=== PATIENT | male | born 1935 | race Caucasian/White ===

== ENCOUNTER 2017-07-29 11:36 | Observation (INO) ==
[2017-07-29 12:37] LABS: Bilirubin,Urine Negative (Negative); Blood,Urine Moderate (Negative); Clarity,Urine Turbid (Clear); Color,Urine Yellow (Yellow); Glucose,Urine (UA) Normal (Normal); Ketones,Urine Negative (Negative); Leukocyte Esterase,Urine Large (Negative); Nitrite,Urine Negative (Negative); PH,Urine 6.5 pH Units (5.0-8.0); Protein,Urine 100 mg/dL (Neg-Trace); Specific Gravity,Urine 1.018 (1.010-1.025); Urobilinogen,Urine Normal (Normal)
[2017-07-29 12:40] LABS: Bacteria,Urine None Seen per hpf (None-Few); Hyaline Casts,Urine None Seen per lpf (None-Few); RBC,Urine 30-50 per hpf (0-3); Squamous Epithelial Cell,Urine Moderate per lpf (None-Few); WBC,Urine TNTC per hpf (0-3)
[2017-07-29 12:58] LABS: Yeast,Urine Moderate per hpf (None Seen)
--- NOTE | 2017-07-29 13:18 | Emergency Department Note ---
Disposition Clinical Impression: Hydroureter, Hydronephrosis, Dysuria, Hypertension, Renal insufficiency Disposition: Admitted As Inpatient Referrals: NONE,PCP [Primary Care Provider] - Jeimy Farley DO [Family Provider] - Forms: ED Satisfaction Letter Male Urogenital HPI - General Chief complaint: ED Urogenital-Male Stated complaint: "UTI" Time Seen by Provider: 07/29/17 12:48 Source: patient Mode of arrival: ambulatory Limitations: no limitations Nursing Notes Reviewed: Yes Vital Signs Reviewed: Yes - History of Present Illness HPI Narrative: 81 yo M c PMHx HTN reports tot he ED c/o Dysuria x 1 month. Patient reports he was seen at [facility] for Dysuria on 06/21/17. He was given an antibiotic and discharged home. He also had a CT scan at that time which was negative. Patient reports at that time he was peeing once an hour. He reports it never got better and now he is urinating more frequently every 10 minutes. He reports very little comes out. He reports the pain in his back which is associated with his dysuria is much improved compared to a month ago. He denies Nausea, Vomiting Diarrhea, Discharge. He does not go to the docotor's frequently. Last seen 2013. Patient admits to not taking his BP medication everyday. Pt Subjective Complaint: dysuria Onset (ago): month(s) (since 06/21/17) Duration: constant Quality: burning Worsens with: urination Reports: denies other symptoms - Related Data Home Medications Medication Instructions Recorded Confirmed Diphenhydramine HCl [Allergy] 25 mg PO DAILY 07/29/17 07/29/17 Lisinopril [Zestril] 10 mg PO DAILY 07/29/17 07/29/17 Allergies Allergy/AdvReac Type Severity Reaction Status Date / Time No Known Allergies Allergy Verified 07/29/17 16:36 Review of Systems: As Per HPI Past Medical History - Past Medical History Medical history: Reports: hypertension - Social History Smoking Status: Never smoker Smokeless Tobacco Status: No Alcohol use: Reports: none Drug use: Reports: none Physical Exam - General Limitations: no limitations General appearance: alert, in no apparent distress - Head Head exam: atraumatic, normocephalic - Eye Eye exam: Absent: scleral icterus, conjunctival injection - ENT ENT exam: normal oropharynx, mucous membranes moist - Neck Neck exam: Present: full ROM, trachea midline - Chest Chest inspection: Present: symmetric chest wall rise. Absent: tenderness - Respiratory Respiratory exam: Present: normal lung sounds bilaterally. Absent: respiratory distress - Cardiovascular Cardiovascular exam: Present: regular rate, normal rhythm, normal heart sounds - Back Exam Back exam: Absent: CVA tenderness (R), CVA tenderness (L) - Neurological Exam Neurological exam: Present: alert, oriented X3 - Psychiatric Psychiatric exam: Present: normal affect, normal mood - Skin Skin exam: Present: warm, dry Course - Consultations Consultation #1: Discussed case with admitting hospitalist who agreed to accept the patient for admission. Vital Signs Temperature 98 F 07/29/17 11:50 Pulse Rate 83 07/29/17 11:50 Respiratory Rate 20 07/29/17 11:50 Blood Pressure 241/111 07/29/17 11:50 O2 Sat by Pulse Oximetry 96 07/29/17 11:50 Temperature 98 F 07/29/17 12:45 Pulse Rate 83 07/29/17 12:45 Respiratory Rate 20 07/29/17 12:45 Blood Pressure 170/97 07/29/17 16:42 O2 Sat by Pulse Oximetry 96 07/29/17 12:45 Oxygen Delivery Oxygen Delivery Room Air Urogenital-Male - MDM Narrative Medical decision making narrative: CT abd 1. Interval development of mild left hydroureteronephrosis extending to the ureterovesicular junction. Mild adjacent perinephric stranding. No obstructing calculus identified. Further evaluation should be considered to determine the etiology. 2. Cholelithiasis with 2.6 cm gallstone. 3. Abdominal aortic aneurysm measuring 37 x 36 mm. Follow-up CT suggested in 1 year. Urine shows TNTC WBC, Large leuk esterase, medium blood, proteinuria, 30-50WBC, no bacteria, moderate yeast. Cr elevated to 1.63 last cr was 1.44 4 years ago. Patient with accelerate HTN upon presnetaiton 241/111. Patient non compliant with home lisinopril. Gave home lisinopril dose fluids. On repeat testing BP 170/97 We will admit the patient to the hospitalist for acelerated HTN with end organ damage. Will start patient on empiric abx in light of dysuira and perinephric stranding. Possible patient may have had a kidney stone that has since passed. Also gave patient pyridium for dysuria. - Medical Records Medical records reviewed: Yes I reviewed the patient's medical records. - Lab Data Lab results reviewed: Yes I reviewed the patient's lab results. Result diagrams: 07/29/17 13:47 07/29/17 13:47 Lab Results 07/29/17 07/29/17 07/29/17 Range/Units 12:10 13:47 13:47 WBC 9.3 (4.3-11.1) K/mcL RBC 4.36 (4.19-5.50) M/mcL Hgb 13.0 (12.9-16.9) g/dL Hct 40.4 (37.5-50.1) % MCV 92.7 (83.0-100.0) fL MCH 29.8 (28.0-33.3) pg MCHC 32.2 (31.6-35.5) g/dL RDW 15.9 H (11.5-14.5) % Plt Count 234 (140-400) K/mcL MPV 10.0 (9.4-12.4) fL Immature Gran % 0.2 (0-4) % Seg Neutrophils % 66.0 % Lymphocytes % 20.1 % Monocytes % 9.2 % Eosinophils % 4.1 % Basophils % 0.4 % Neutrophils # 6.1 (1.6-8.9) K/mcL Lymphocytes # 1.9 (0.6-4.6) K/mcL Monocytes # 0.9 (0.0-1.3) K/mcL Eosinophils # 0.4 (0.0-0.6) K/mcL Basophils # 0.0 (0.0-0.2) K/mcL Sodium 139 (136-145) mEq/L Potassium 4.3 (3.5-5.1) mEq/L Chloride 107 (98-107) mEq/L Carbon Dioxide 22 L (23-29) mEq/L BUN 38 H (8-23) mg/dL Creatinine 1.64 H (0.70-1.30) mg/dL Est GFR ( Amer) 49 L (> 60) Est GFR (Non-Af Amer) 41 L (> 60) BUN/Creatinine Ratio 23 (6-26) Glucose 82 (70-105) mg/dL Calculated Osmolality 296 (280-300) Calcium 9.6 (8.6-10.3) mg/dL Troponin I < 0.03 (< 0.04) ng/mL Urine Color Yellow (Yellow) Urine Clarity Turbid A (Clear) Urine pH 6.5 (5.0-8.0) pH Units Ur Specific [place] 1.018 (1.010-1.025) Urine Protein 100 H (Neg-Trace) mg/dL Urine Glucose (UA) Normal (Normal) mg/dL Urine Ketones Negative (Negative) mg/dL Urine Blood Moderate H (Negative) Urine Nitrite Negative (Negative) Urine Bilirubin Negative (Negative) Urine Urobilinogen Normal (Normal) mg/dL Ur Leukocyte Esterase Large H (Negative) Urine Microscopic RBC 30-50 H (0-3) per hpf Urine Microscopic WBC TNTC H (0-3) per hpf Ur Squamous Epith Cells Moderate H (None-Few) per lpf Urine Bacteria None Seen (None-Few) per hpf Hyaline Casts None Seen (None-Few) per lpf Urine Yeast Moderate H (None Seen) per hpf Ur Culture Indicated? YES A (NO) - EKG Data EKG attestation: Yes I reviewed and interpreted this EKG. EKG results narrative: EKG 07/29/17 13:51 Shows Sinus Rhythm with Peaked T waves most prominent in V2- V5 Rate 72bpm, PA interval 162, QRS 93, QT/QTc 358/382. Unchanged from prior EKG of 10/14/2010. Attestation Statement - Attestation Attestation: I, Joshua Lauren DO, examined this patient [id number] and my medical decision-making was reviewed with Joshua Harper PGY-1, Resident Physician. I agree with the documented findings, disposition and treatment plan as described except to the extent set forth below. Please see my progress notes for details.
[2017-07-29] MEDS ORDERED: Lisinopril 20 MG TABLET PO ONE (13:25)
[2017-07-29 14:04] LABS: Basophils % 0.4 %; Eosinophils # 0.4 K/mcL (0.0-0.6); Eosinophils % 4.1 %; Hematocrit 40.4 % (37.5-50.1); Immature Granulocytes % 0.2 % (0-4); Lymphocytes # 1.9 K/mcL (0.6-4.6); Lymphocytes % 20.1 %; Mean Corpuscular HGB Conc 32.2 g/dL (31.6-35.5); Mean Corpuscular Hemoglobin 29.8 pg (28.0-33.3); Mean Corpuscular Volume 92.7 fL (83.0-100.0); Monocytes # 0.9 K/mcL (0.0-1.3); Monocytes % 9.2 %; Neutrophils # 6.1 K/mcL (1.6-8.9); Platelet Count 234 K/mcL (140-400); Red Blood Count 4.36 M/mcL (4.19-5.50); Red Cell Distribution Width 15.9 % (11.5-14.5)
[2017-07-29 14:43] LABS: BUN/Creatinine Ratio 23 (6-26); Blood Urea Nitrogen 38 mg/dL (8-23); Calcium 9.6 mg/dL (8.6-10.3); Carbon Dioxide 22 mEq/L (23-29); Chloride 107 mEq/L (98-107); Glucose 82 mg/dL (70-105); Osmolality,Calculated 296 (280-300); Potassium 4.3 mEq/L (3.5-5.1); Sodium 139 mEq/L (136-145); eGFR For African Americans 49 (> 60); eGFR For Non-African Americans 41 (> 60)
[2017-07-29 15:08] LABS: Troponin I < 0.03 ng/mL (< 0.04)
--- NOTE | 2017-07-29 15:29 | Emergency Department Note ---
Disposition Clinical Impression: Hydroureter, Hydronephrosis, Dysuria, Hypertension, Renal insufficiency Disposition: Admitted As Inpatient Condition: Fair Referrals: Jeimy Farley DO [Family Provider] - NONE,PCP [Primary Care Provider] - Forms: ED Satisfaction Letter Time of Disposition: 16:44 General Adult HPI - General Chief complaint: ED Urogenital-Male Stated complaint: "UTI" Time Seen by Provider: 07/29/17 12:48 Source: patient Mode of arrival: ambulatory Limitations: no limitations - History of Present Illness Pain Scale: 8 - Related Data Home Medications Medication Instructions Recorded Confirmed Diphenhydramine HCl [Allergy] 25 mg PO DAILY 07/29/17 07/29/17 Lisinopril [Zestril] 10 mg PO DAILY 07/29/17 07/29/17 Allergies Allergy/AdvReac Type Severity Reaction Status Date / Time No Known Allergies Allergy Verified 07/29/17 16:36 Past Medical History - Past Medical History Medical history: Reports: hypertension - Social History Smoking Status: Never smoker Smokeless Tobacco Status: No Alcohol use: Reports: none Drug use: Reports: none Physical Exam - General Limitations: no limitations General appearance: alert, in no apparent distress Course Vital Signs Temperature 98 F 07/29/17 11:50 Pulse Rate 83 07/29/17 11:50 Respiratory Rate 20 07/29/17 11:50 Blood Pressure 241/111 07/29/17 11:50 O2 Sat by Pulse Oximetry 96 07/29/17 11:50 Temperature 98 F 07/29/17 12:45 Pulse Rate 83 07/29/17 12:45 Respiratory Rate 20 07/29/17 12:45 Blood Pressure 241/111 07/29/17 12:45 O2 Sat by Pulse Oximetry 96 07/29/17 12:45 Oxygen Delivery Oxygen Delivery Room Air Medical Decision Making - Lab Data Result diagrams: 07/29/17 13:47 07/29/17 13:47 Lab Results 07/29/17 07/29/17 07/29/17 Range/Units 12:10 13:47 13:47 WBC 9.3 (4.3-11.1) K/mcL RBC 4.36 (4.19-5.50) M/mcL Hgb 13.0 (12.9-16.9) g/dL Hct 40.4 (37.5-50.1) % MCV 92.7 (83.0-100.0) fL MCH 29.8 (28.0-33.3) pg MCHC 32.2 (31.6-35.5) g/dL RDW 15.9 H (11.5-14.5) % Plt Count 234 (140-400) K/mcL MPV 10.0 (9.4-12.4) fL Immature Gran % 0.2 (0-4) % Seg Neutrophils % 66.0 % Lymphocytes % 20.1 % Monocytes % 9.2 % Eosinophils % 4.1 % Basophils % 0.4 % Neutrophils # 6.1 (1.6-8.9) K/mcL Lymphocytes # 1.9 (0.6-4.6) K/mcL Monocytes # 0.9 (0.0-1.3) K/mcL Eosinophils # 0.4 (0.0-0.6) K/mcL Basophils # 0.0 (0.0-0.2) K/mcL Sodium 139 (136-145) mEq/L Potassium 4.3 (3.5-5.1) mEq/L Chloride 107 (98-107) mEq/L Carbon Dioxide 22 L (23-29) mEq/L BUN 38 H (8-23) mg/dL Creatinine 1.64 H (0.70-1.30) mg/dL Est GFR ( Amer) 49 L (> 60) Est GFR (Non-Af Amer) 41 L (> 60) BUN/Creatinine Ratio 23 (6-26) Glucose 82 (70-105) mg/dL Calculated Osmolality 296 (280-300) Calcium 9.6 (8.6-10.3) mg/dL Troponin I < 0.03 (< 0.04) ng/mL Urine Color Yellow (Yellow) Urine Clarity Turbid A (Clear) Urine pH 6.5 (5.0-8.0) pH Units Ur Specific [place] 1.018 (1.010-1.025) Urine Protein 100 H (Neg-Trace) mg/dL Urine Glucose (UA) Normal (Normal) mg/dL Urine Ketones Negative (Negative) mg/dL Urine Blood Moderate H (Negative) Urine Nitrite Negative (Negative) Urine Bilirubin Negative (Negative) Urine Urobilinogen Normal (Normal) mg/dL Ur Leukocyte Esterase Large H (Negative) Urine Microscopic RBC 30-50 H (0-3) per hpf Urine Microscopic WBC TNTC H (0-3) per hpf Ur Squamous Epith Cells Moderate H (None-Few) per lpf Urine Bacteria None Seen (None-Few) per hpf Hyaline Casts None Seen (None-Few) per lpf Urine Yeast Moderate H (None Seen) per hpf Ur Culture Indicated? YES A (NO) Attestation Statement - Attestation Attestation: I, Joshua Lauren DO, examined this patient [id number] and my medical decision-making was reviewed with Joshua Harper PGY-1, Resident Physician. I agree with the documented findings, disposition and treatment plan as described except to the extent set forth below. Please see my progress notes for details. 81-year-old male presents emergency room in the care of family for evaluation of burning with urination. Patient seen and evaluated outside facility started on antibiotics. Patient said the same symptoms are quite a while is concerned because he thought that the urinary tract infection cleared up. He came in today strictly for this evaluation. He denies any chest pain shortness of breath headache vision changes nausea vomiting or diarrhea. Denies any fevers or chills. No trauma or injuries. 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 Physical exam shows a thin appearing gentleman who appears to be age appropriate at this time. Head is atraumatic or flexes patent trachea is midline lungs are clear heart is regular abdomen is soft nontender nondistended. examination was deferred until later. Patient moves all 470s and is able to in the emergency room and no ataxia. He has no complaints or other symptoms. Screening evaluation with urinalysis will be completed at this time. Patient's blood pressure is significantly elevated on presentation so labs including CBC chemistry and troponin along with EKG will be collected. Disposition pending the full workup and treatment course. See detailed documentation of physical exam, medical intervention, medical decision-making and disposition in the resident physician's note. 1525 Patient has gross hematuria. CT imaging of the abdomen was ordered just to confirm or review any potential for renal related issues versus bladder masses. Patient's blood pressure will be rechecked. He does have an elevated creatinine which is concerning for an organ dysfunction. Previous renal function was reviewed from his outpatient evaluations in his previously 1.2 and today is 1.64. Discussed with the patient and recommended admission. He is accommodating to this at this time. CT imaging to be resulted admission process will be completed. 1640 Repeat blood pressure is 19 . Patient is still asymptomatic with this. CT imaging the abdomen does show possible hydroureter hydronephrosis in the left kidney with no signs of obstructing stone. Patient will be symptomatically started on antibiotic to help prevent against possible infection or treat possible infection. Patient will be admitted for what appears to be accelerated hypertension with end organ dysfunction with the elevated creatinine here today. Patient is otherwise clinically stable. There is no acute intervention with a blood pressure required after the oral medications were given. Patient has reduced his blood pressure greater than 10% here in the emergency room and does not require any further intervention at this time. The remainder treatment course medication regimen will be established and treated on the floor. Hospitalist Dr. Doss has accepted the patient for definitive management. Patient will be admitted at this time.
[2017-07-29] MEDS ORDERED: 0.9 % Sodium Chloride 1,000 ML IVC ONE (15:55)
[2017-07-29] MEDS ORDERED: cefTRIAXone 2,000 MG in 0.9 % Sodium Chloride Mini Bag 100 ML IVPB ONE (15:55)
[2017-07-29] MEDS ORDERED: Acetaminophen 325 MG TABLET PO ONE (16:35)
--- NOTE | 2017-07-29 16:53 | Internal Med History&Physical ---
Date of Encounter: 07/29/17 Time of Encounter: 16:53 Internal Medicine - H&P: HPI Chief complaint: dysuria History of present illness: Mr. Jones is a 81 year old male PMHx HTN reports tot he ED c/o Dysuria x 1 month I asked to associated with increased frequency of urination, Patient reports he was seen at [facility] for Dysuria on 06/21/17. He was given an antibiotic and discharged home. He also had a CT scan at that time which was negative. the patient was evaluated by the ER and his blood pressure was elevated was reported as diastolic blood pressure more than 240 , his laboratory data revealed acute kidney injury was reported creatinine of 1.6, the patient CAT scan of the abdomen hydroureter and hydronephrosis, the patient was admitted for further emergency, UTI. Past Med Surg Social Fam HX - Past Medical History Medical history: hypertension - Social History Smoking Status: Never smoker Smokeless Tobacco Status: No Alcohol use: none Drug use: none Internal Medicine - H&P: Meds Diphenhydramine HCl [Allergy] 25 mg PO DAILY 07/29/17 [History] Amiloride HCl 5 mg PO DAILY #30 tablet 08/01/17 [Rx] Lisinopril [Zestril] 40 mg PO DAILY #30 tablet 08/01/17 [Rx] Oxybutynin [Ditropan] 5 mg PO BID #60 tablet 08/01/17 [Rx] Tamsulosin [Flomax] 0.4 mg PO DAILY #30 capsule 08/01/17 [Rx] amLODIPine [Norvasc] 10 mg PO DAILY #30 tablet 08/01/17 [Rx] 3 Allergy/AdvReac Type Severity Reaction Status Date / Time No Known Allergies Allergy Verified 07/29/17 16:36 All Systems PM: A 10-system review of systems was performed and is negative for pertinent findings except as documented above in the HPI. - Constitutional Constitutional: no chills, no fever(s), no night sweats - Cardiovascular Cardiovascular ROS IM: no chest pain, no diaphoresis, no dyspnea, no lightheadedness, no palpitations, no syncope - Respiratory Respiratory: no cough, no dyspnea, no wheezing, no excessive phlegm production - Gastrointestinal Gastrointestinal: no abdominal pain, no diarrhea, no hematemesis, no hematochezia, no melena, no nausea, no vomiting - Genitourinary Genitourinary ROS male: dysuria, flank pain, urinary frequency, urinary urgency - Neurological Neurological ROS: no confusion, no convulsions, no focal weakness, no numbness, no tingling, no tremor(s) - Constitutional Vitals: Temp Pulse Resp BP Pulse Ox 98 F 83 20 170/97 96 07/29/17 12:45 07/29/17 12:45 07/29/17 12:45 07/29/17 16:42 07/29/17 12:45 General appearance: Present: A&O X 3 - Head Head exam: Present: atraumatic, normocephalic - Eye Eye exam: Present: PERRL, conjuntiva pink, sclera anicteric Pupils: Present: PERRL - Neck Neck exam general surgery: Present: supple, trachea midline. Absent: lymphadenopathy - Respiratory Respiratory exam: Present: CTAB. Absent: accessory muscle use, rales, rhonchi, wheezes - Cardiovascular Cardiovascular exam: Present: RRR, +S1, +S2. Absent: diastolic murmur, gallop, rubs, systolic murmur - GI/Abdominal GI/Abdominal exam: Present: normal bowel sounds, soft, no peritoneal signs. Absent: distended, tenderness - Extremities Exam Extremities exam: Present: warm, radial pulses palpable and symmetrical. Absent : calf tenderness, cyanotic, pedal edema Internal Med - H&P Results - Labs CBC & Chem 7: 07/30/17 04:26 07/31/17 04:54 Labs: Short CBC 07/29/17 Range/Units 13:47 WBC 9.3 (4.3-11.1) K/mcL Hgb 13.0 (12.9-16.9) g/dL Hct 40.4 (37.5-50.1) % Plt Count 234 (140-400) K/mcL Neutrophils # 6.1 (1.6-8.9) K/mcL BMP 07/29/17 13:47 Sodium 139 Potassium 4.3 Chloride 107 Carbon Dioxide 22 L BUN 38 H Creatinine 1.64 H Glucose 82 Calcium 9.6 Cardiac Enzymes 07/29/17 Range/Units 13:47 Troponin I < 0.03 (< 0.04) ng/mL Urine 07/29/17 Range/Units 12:10 Urine Color Yellow (Yellow) Urine Clarity Turbid A (Clear) Urine pH 6.5 (5.0-8.0) pH Units Ur Specific [place] 1.018 (1.010-1.025) Urine Protein 100 H (Neg-Trace) mg/dL Urine Glucose (UA) Normal (Normal) mg/dL - Impressions ITS Impressions Chest X-Ray 07/29/17 13:25 IMPRESSION: No acute findings. Pulmonary hyperinflation suggests obstructive small airways disease such as asthma or COPD. D/ / Hudson Lozada / Hudson Lozada Interpreting Provider: Hudson Lozada Abdomen/Pelvis CT 07/29/17 15:42 IMPRESSION: 1. Interval development of mild left hydroureteronephrosis extending to the ureterovesicular junction. Mild adjacent perinephric stranding. No obstructing calculus identified. Further evaluation should be considered to determine the etiology. 2. Cholelithiasis with 2.6 cm gallstone. 3. Abdominal aortic aneurysm measuring 37 x 36 mm. Follow-up CT suggested in 1 year. RECOMMENDATIONS: Managing Abdominal Aortic Aneurysms 3.5-3.9 cm: Every 1 year. Reference: J Vasc Surg. 2008;50(4 Suppl):S2-49 D/ / 07/29/2017 16:40:54 Pedro Martinez MD / [email or web address] Interpreting Provider: Pedro Martinez MD - Assessment and plan (1) Hypertensive emergency Status: Acute Assessment and plan: pressure is much better controlled, now was reported with a systolic blood pressure 160. We will start hydralazine 10 mg every 6 hours for systolic blood pressure more than 180 and diastolic pressure more than 100 (2) Acute kidney injury Status: Acute Assessment and plan: most likely secondary to uncontrolled HTN , obstructive uropathy component can not be excluded however is less likely given the absence of kidney stones on CT scan. urine analysis is positive for microscopic hematuria, nephrology and urology were consulted (3) Dysuria Status: Acute Assessment and plan: most likely secondary to UTI, the patient was started on empiric antibiotic with ceftriaxone urine culture were sent we will adjust antibiotic regimen accordingly (4) Hydronephrosis Status: Acute Assessment and plan: urology was consulted for further eval, there is no evidence of stones or obstruction Qualifiers: Hydronephrosis type: unspecified Qualified Code(s): N13.30 - Unspecified hydronephrosis (5) Microscopic hematuria Status: Acute Assessment and plan: we will repeat urine analysis, nephrology were consulted - Time Spent With Patient Total time spent is greater than 50% in coordination of care (as documented) at patient's floor/unit and/or counseling patient:
[2017-07-29] MEDS ORDERED: Naloxone 0.4 MG/ML INJ IVP PRN (21:09)
[2017-07-29] MEDS ORDERED: *HR* HYDROcodone/Acet 5/325 mg TABLET PO PRN (21:09)
[2017-07-30] MEDS: 0.9 % Sodium Chloride 1,000 ML IVC SCH ×2 (00:52→09:31)
[2017-07-30 05:34] LABS: Basophils # 0.1 K/mcL (0.0-0.2); Basophils % 0.5 %; Eosinophils # 0.6 K/mcL (0.0-0.6); Eosinophils % 6.1 %; Hematocrit 37.8 % (37.5-50.1); Hemoglobin 12.3 g/dL (12.9-16.9); Immature Granulocytes % 0.5 % (0-4); Lymphocytes # 1.5 K/mcL (0.6-4.6); Lymphocytes % 14.9 %; Mean Corpuscular HGB Conc 32.5 g/dL (31.6-35.5); Mean Corpuscular Hemoglobin 30.3 pg (28.0-33.3); Mean Corpuscular Volume 93.1 fL (83.0-100.0); Mean Platelet Volume 10.2 fL (9.4-12.4); Monocytes % 9.4 %; Neutrophils # 6.9 K/mcL (1.6-8.9); Platelet Count 245 K/mcL (140-400); Red Blood Count 4.06 M/mcL (4.19-5.50); Red Cell Distribution Width 15.9 % (11.5-14.5); Segmented Neutrophils % 68.6 %
[2017-07-30 05:40] LABS: INR 1.1; Prothrombin Time 11.5 Seconds (9.4-12.1)
[2017-07-30 05:42] LABS: Activated Partial Thrombo Time 32.9 Seconds (26.0-36.0)
[2017-07-30 05:54] LABS: Alanine Aminotransferase 7 Units/L (7-52); Albumin 3.7 g/dL (3.5-5.7); Albumin/Globulin Ratio 1.3 (1.1-2.2); Alkaline Phosphatase 65 Units/L (34-104); Aspartate Amino Transferase 13 Units/L (13-39); BUN/Creatinine Ratio 27 (6-26); Bilirubin,Total 0.4 mg/dL (0.3-1.0); Blood Urea Nitrogen 37 mg/dL (8-23); Calcium 8.8 mg/dL (8.6-10.3); Carbon Dioxide 24 mEq/L (23-29); Chloride 109 mEq/L (98-107); Chol/HDL Ratio 3.1 (0-4.9); Cholesterol 174 mg/dL (< 200); Globulin 2.8 g/dL (2.4-3.5); Glucose 85 mg/dL (70-105); HDL Cholesterol 56 mg/dL (40-59); LDL Cholesterol,Calculated 104 mg/dL (0-99); Magnesium 1.9 mg/dL (1.6-2.6); Osmolality,Calculated 296 (280-300); Phosphorous 3.6 mg/dL (2.7-4.5); Potassium 3.9 mEq/L (3.5-5.1); Sodium 139 mEq/L (136-145); Total Protein 6.5 g/dL (6.4-8.9); Triglycerides 68 mg/dL (< 150); eGFR For African Americans > 60 (> 60); eGFR For Non-African Americans 50 (> 60)
[2017-07-30] MEDS: *HR* Heparin 5,000 UNIT/ML VIAL SQ SCH ×2 (06:44→18:29)
--- NOTE | 2017-07-30 06:56 | Urology - Consult Note ---
Date of Encounter: 07/30/17 Time of Encounter: 06:54 - Assessment and Plan (1) Hydronephrosis Current Visit: Yes Status: Acute Assessment and plan: I personally reviewed the CT scan. I agree there is mild hydro-nephrosis and hydroureter down to the ureterovesical junction. I see no obstructing ureteral stone. In addition there is bladder wall thickening, multiple prostatic calcifications in opacity of the left seminal vesicle. Unsure of the significance of these findings but differential does include sequela of a urinary tract infection, significant outlet obstruction, urothelial malignancy. The patient's symptoms are overall improving, he no longer has flank pain, and his renal function has improved ; I do not feel he requires cystoscopy with ureteral stent placement today. We will continue to follow the patient closely. Urine culture is pending - this will help determine if a urinary tract infection is the most likely etiology for her symptoms. Continue broad- spectrum antibiotics as I do not see a previous urine culture to base our antibiotic choice on. Urinalysis at admission did not have bacteriuria but there were numerous red blood cells and leukocyte esterase. Culture is pending. Qualifiers: Hydronephrosis type: unspecified Qualified Code(s): N13.30 - Unspecified hydronephrosis Urology CN:HPI Consult date: 07/30/17 Reason for consult Urology: Hydronephrosis History of present illness: 81-year-old male admitted to the hospital for UTI. States 5 weeks ago he was diagnosed with urinary tract infection, started on antibiotics. He reports his symptoms improved but not completely. Symptoms gradually increased and he redeveloped severe frequency and dysuria. He denies fever. He did have left flank pain which is now resolved. 6 months ago he had a few episodes of gross hematuria which did not occur again. Past Med Surg Social Fam HX - Past Medical History Medical history: hypertension Psychiatric history: no psych history - Past Surgical History Surgical History: no surgical history - Social History Smoking Status: Never smoker Smokeless Tobacco Status: No Alcohol use: none Drug use: none Medications and Allergies Diphenhydramine HCl [Allergy] 25 mg PO DAILY 07/29/17 [History] Lisinopril [Zestril] 10 mg PO DAILY 07/29/17 [History] 3 Allergy/AdvReac Type Severity Reaction Status Date / Time No Known Allergies Allergy Verified 07/29/17 16:36 Review of Systems - Constitutional fatigue, malaise, weakness, no fever(s) - EENT Nose, mouth and throat: no dizziness, no headache(s) - Cardiovascular no chest pain - Respiratory no cough - Gastrointestinal abdominal pain - Genitourinary flank pain, hematuria, urinary frequency - Musculoskeletal back pain - Integumentary no erythema - Neurological no confusion - Psychiatric no anxiety - Hematologic/Lymphatic no easy bleeding - Allergic/Immunologic no throat swelling Exam Initial Vital Signs Temp Pulse Resp BP Pulse Ox 98 F 83 20 241/111 96 07/29/17 11:50 07/29/17 11:50 07/29/17 11:50 07/29/17 11:50 07/29/17 11:50 - General physical appearance Present: well developed, no distress - Eyes Present: PERRL - ENT Present: normal nares, no hearing loss - Neck Present: no masses, no lymphadenopathy - Respiratory Present: normal respiratory effort - Cardiovascular Cardiovascular exam IM: RRR - Abdomen Abdomen: Present: soft. Absent: masses, suprapubic tenderness - Genitourinary normal penis with no external lesions Penis: Absent: edema, phimosis Urethral meatis: Present: patent - Integumentary Present: lesions (Cutaneous lesion on right aspect of head) - Neurologic Present: normal coordination. Absent: disoriented, confused Urology Results - Labs 07/30/17 04:26 07/30/17 04:26 Abnormal lab results RBC 4.06 M/mcL (4.19-5.50) L 07/30/17 04:26 Hgb 12.3 g/dL (12.9-16.9) L 07/30/17 04:26 RDW 15.9 % (11.5-14.5) H 07/30/17 04:26 Chloride 109 mEq/L (98-107) H 07/30/17 04:26 BUN 37 mg/dL (8-23) H 07/30/17 04:26 Creatinine 1.36 mg/dL (0.70-1.30) H 07/30/17 04:26 Est GFR (Non-Af Amer) 50 (> 60) L 07/30/17 04:26 BUN/Creatinine Ratio 27 (6-26) H 07/30/17 04:26 B-Natriuretic Peptide 325 pg/mL (Less than 100) H 07/30/17 04:26 LDL Cholesterol, Calc 104 mg/dL (0-99) H 07/30/17 04:26 Urine Clarity Turbid (Clear) A 07/29/17 12:10 Urine Protein 100 mg/dL (Neg-Trace) H 07/29/17 12:10 Urine Blood Moderate (Negative) H 07/29/17 12:10 Ur Leukocyte Esterase Large (Negative) H 07/29/17 12:10 Urine Microscopic RBC 30-50 per hpf (0-3) H 07/29/17 12:10 Urine Microscopic WBC TNTC per hpf (0-3) H 07/29/17 12:10 Ur Squamous Epith Cells Moderate per lpf (None-Few) H 07/29/17 12:10 Urine Yeast Moderate per hpf (None Seen) H 07/29/17 12:10 Ur Culture Indicated? YES (NO) A 07/29/17 12:10 Diabetes panel 07/30/17 Range/Units 04:26 Sodium 139 (136-145) mEq/L Potassium 3.9 (3.5-5.1) mEq/L Chloride 109 H (98-107) mEq/L Carbon Dioxide 24 (23-29) mEq/L BUN 37 H (8-23) mg/dL Creatinine 1.36 H (0.70-1.30) mg/dL Glucose 85 (70-105) mg/dL Calcium 8.8 (8.6-10.3) mg/dL AST 13 (13-39) Units/L ALT 7 (7-52) Units/L Alkaline Phosphatase 65 (34-104) Units/L Albumin 3.7 (3.5-5.7) g/dL Triglycerides 68 (< 150) mg/dL HDL Cholesterol 56 (40-59) mg/dL Calcium panel 07/30/17 Range/Units 04:26 Calcium 8.8 (8.6-10.3) mg/dL Phosphorus 3.6 (2.7-4.5) mg/dL Albumin 3.7 (3.5-5.7) g/dL Pituitary panel 07/30/17 Range/Units 04:26 Sodium 139 (136-145) mEq/L Potassium 3.9 (3.5-5.1) mEq/L Chloride 109 H (98-107) mEq/L Carbon Dioxide 24 (23-29) mEq/L BUN 37 H (8-23) mg/dL Creatinine 1.36 H (0.70-1.30) mg/dL Glucose 85 (70-105) mg/dL Calcium 8.8 (8.6-10.3) mg/dL Adrenal panel 07/30/17 Range/Units 04:26 Sodium 139 (136-145) mEq/L Potassium 3.9 (3.5-5.1) mEq/L Chloride 109 H (98-107) mEq/L Carbon Dioxide 24 (23-29) mEq/L BUN 37 H (8-23) mg/dL Creatinine 1.36 H (0.70-1.30) mg/dL Glucose 85 (70-105) mg/dL Calcium 8.8 (8.6-10.3) mg/dL Total Bilirubin 0.4 (0.3-1.0) mg/dL AST 13 (13-39) Units/L ALT 7 (7-52) Units/L Alkaline Phosphatase 65 (34-104) Units/L Albumin 3.7 (3.5-5.7) g/dL All other labs normal. Consult Discharge Plan - Plan Referrals: NONE,PCP [Primary Care Provider] - Jeimy Farley DO [Family Provider] -
[2017-07-30] MEDS: cefTRIAXone 1,000 MG in Water for inj. (sterile) 20 ML 10 ML IVP SCH (09:26)
--- NOTE | 2017-07-30 11:10 | Internal Med Progress Note ---
<Sandeep Palmer Pepito - Last Filed: 07/30/17 15:14> Date of Encounter: 07/30/17 Time of Encounter: 11:06 - Assessment and plan (1) Hypertensive emergency Current Visit: Yes Status: Acute Assessment and plan: Bp on arrival in 200s and found to have renal dysfunction. Will continue to monitor bp closely and continue to lower bp gradually. Hydralazine 10mg q6h prn if sbp > 180. Hold lisinopril due to renal injury. Renal doppler ordered Consider resuming once renal function continues to show improvement. Shows improvement since arrival. -Start amoldipine 5mg. -IV fluids 60mL/hr normal saline. (2) Dysuria Current Visit: Yes Status: Acute Assessment and plan: Most likely secondary to UTI. Continue with Ceftriaxone d1. Urine culture sent, will tailor antibiotic therapy per sensitivities. (3) Hydronephrosis Current Visit: Yes Status: Acute Assessment and plan: Hydronephrosis and hydroureter down to the ureterovesical junction. Urology not reviewed, do not feel cystoscopy with stenting is needed today. Continue with antibiotics for suspected UTI. Qualifiers: Hydronephrosis type: unspecified Qualified Code(s): N13.30 - Unspecified hydronephrosis (4) Acute kidney injury Current Visit: Yes Status: Acute Assessment and plan: Secondary to uncontrolled hypertension. UA with microscopic hematuria Continue monitoring labs, improved with Cr 1.36 this morning. -IV fluids 60mL/hr normal saline. (5) Microscopic hematuria Current Visit: Yes Status: Acute Assessment and plan: Found on UA. (6) BPH associated with nocturia Current Visit: Yes Status: Acute Assessment and plan: Prostate exam with an enlarged smooth firm prostate without nodularity and is symmetrical. Urinates about every 10-20 minutes over past 9-12 months. PSA 0.59 -Start tamsulosin 0.4mg qd, may consider finasteride. - Time Spent With Patient Total time spent is greater than 50% in coordination of care (as documented) at patient's floor/unit and/or counseling patient: - Subjective Interval history: Mr. Jones reports doing well since arrival. He reports having no difficulty with urination, but does still continue to have some burning on urination. Left sided abdominal pain is now resolved. Reports he has had an increase in urination that started over the past 9-12 months. He reports that he has to urinate every 10-20 minutes all day and night. He denies any blood in stools or urine. He also report overall being weaker than before, but nothing acutely different. Denies fevers, chills, sweats, headaches, changes in vision or hearing, nausea , vomiting, chest pain, shortness of breath, abdominal pain, changes in bowels, new weakness, loss of sensation, or rash. - Constitutional Vitals: Temp Pulse Resp BP Pulse Ox 97.8 F 73 18 158/88 98 07/30/17 10:52 07/30/17 10:52 07/30/17 10:52 07/30/17 10:52 07/30/17 10:52 General appearance: Present: A&O X 3, pleasant, no acute distress, answers questions appropriately Exam: mildly cachectic. - Head Head exam: Present: atraumatic, normal inspection, normocephalic - Eye Eye exam: Present: EOMI, normal appearance, PERRL - ENT ENT exam: Present: mucous membranes moist, normal exam - Neck Neck exam general surgery: Present: full ROM, normal inspection, supple, trachea midline. Absent: lymphadenopathy - Respiratory Respiratory exam: Present: CTAB. Absent: rales, respiratory distress, rhonchi, wheezes - Cardiovascular Cardiovascular exam: Present: RRR, +S1, +S2 - GI/Abdominal GI/Abdominal exam: Present: normal bowel sounds, soft. Absent: distended, tenderness, no peritoneal signs - exam: Present: normal inspection Additional comments: prostate firm smooth without nodularity, enlarged approximately 3cm across and nontender. - Extremities Exam Extremities exam: Present: full ROM, normal inspection, warm, radial pulses palpable and symmetrical. Absent: pedal edema, tenderness Additional comments: 5/5 strenght all extremities, normal sensation bilaterally however slightly weak overall - Skin Skin exam: Present: dry, intact, normal color, warm. Absent: rash Internal Medicine: Result - Labs CBC & Chem 7: 07/30/17 04:26 07/30/17 04:26 Labs: Short CBC 07/30/17 Range/Units 04:26 WBC 10.1 (4.3-11.1) K/mcL Hgb 12.3 L (12.9-16.9) g/dL Hct 37.8 (37.5-50.1) % Plt Count 245 (140-400) K/mcL Neutrophils # 6.9 (1.6-8.9) K/mcL BMP 07/30/17 04:26 Sodium 139 Potassium 3.9 Chloride 109 H Carbon Dioxide 24 BUN 37 H Creatinine 1.36 H Glucose 85 Calcium 8.8 Cardiac Enzymes 07/29/17 07/30/17 07/30/17 Range/Units 22:05 04:26 10:01 Troponin I < 0.03 < 0.03 < 0.03 (< 0.04) ng/mL Liver Function 07/30/17 Range/Units 04:26 Total Bilirubin 0.4 (0.3-1.0) mg/dL AST 13 (13-39) Units/L ALT 7 (7-52) Units/L Alkaline Phosphatase 65 (34-104) Units/L Albumin 3.7 (3.5-5.7) g/dL - ABG Interpretation ABG results: PT/INR, D-dimer PT 11.5 Seconds (9.4-12.1) 07/30/17 04:26 Consult Discharge Plan - Plan Referrals: Jeimy Farley DO [Family Provider] - NONE,PCP [Primary Care Provider] - <Aries Su H - Last Filed: 07/30/17 15:17> Date of Encounter: 07/30/17 - Assessment and plan (1) Hydronephrosis Current Visit: Yes Status: Acute Qualifiers: Hydronephrosis type: unspecified Qualified Code(s): N13.30 - Unspecified hydronephrosis (2) Dysuria Current Visit: Yes Status: Acute (3) Hypertensive emergency Current Visit: Yes Status: Acute (4) Acute kidney injury Current Visit: Yes Status: Acute (5) Microscopic hematuria Current Visit: Yes Status: Acute (6) BPH associated with nocturia Current Visit: Yes Status: Acute - Time Spent With Patient Total time spent is greater than 50% in coordination of care (as documented) at patient's floor/unit and/or counseling patient: - Constitutional Vitals: Temp Pulse Resp BP Pulse Ox 97.8 F 73 18 158/88 98 07/30/17 10:52 07/30/17 10:52 07/30/17 10:52 07/30/17 10:52 07/30/17 10:52 Internal Medicine: Result - Labs CBC & Chem 7: 07/30/17 04:26 07/30/17 04:26 Labs: Short CBC 07/30/17 Range/Units 04:26 WBC 10.1 (4.3-11.1) K/mcL Hgb 12.3 L (12.9-16.9) g/dL Hct 37.8 (37.5-50.1) % Plt Count 245 (140-400) K/mcL Neutrophils # 6.9 (1.6-8.9) K/mcL BMP 07/30/17 04:26 Sodium 139 Potassium 3.9 Chloride 109 H Carbon Dioxide 24 BUN 37 H Creatinine 1.36 H Glucose 85 Calcium 8.8 Cardiac Enzymes 07/29/17 07/30/17 07/30/17 Range/Units 22:05 04:26 10:01 Troponin I < 0.03 < 0.03 < 0.03 (< 0.04) ng/mL Liver Function 07/30/17 Range/Units 04:26 Total Bilirubin 0.4 (0.3-1.0) mg/dL AST 13 (13-39) Units/L ALT 7 (7-52) Units/L Alkaline Phosphatase 65 (34-104) Units/L Albumin 3.7 (3.5-5.7) g/dL - ABG Interpretation ABG results: PT/INR, D-dimer PT 11.5 Seconds (9.4-12.1) 07/30/17 04:26 - Attending Attestation Acute renal failure secondary to dehydration likely related to urinary tract infection Continue IV fluids Rocephin day #2 No growth on the urine culture yet We will try to obtaine records from [facility] Hydronephroses on the left side, minimal, continue Flomax. Urology Accelerated hypertension/emergency Hold the center pill due to acute renal failure, may start amlodipine and continue hydralazine IV as needed I examined this patient and my medical decision-making was reviewed with the Resident Physician. I agree with the documented findings, disposition and treatment plan as described except to the extent set forth below.
[2017-07-30] MEDS ORDERED: 0.9 % Sodium Chloride 1,000 ML IVC SCH ×3 (15:15→16:30)
[2017-07-30] MEDS: amLODIPine 5 MG TABLET PO SCH (16:28)
--- NOTE | 2017-07-30 16:28 | Nephrology Consult Note ---
Date of Encounter: 07/31/17 Time of Encounter: 16:27 Assessment and Plan (1) Hydroureter Current Visit: Yes Status: Acute Per urology. (2) Hypertension Current Visit: Yes Status: Acute Etiology for his accelerated hypertension is unclear. I recommend gradual titration of his antihypertensive medications. Will restart and increase lisinopril. Agree with renal artery dopplar. Will order labs for secondary causes. Qualifiers: Qualified Code(s): I10 - Essential (primary) hypertension (3) Acute kidney injury Current Visit: Yes Status: Acute Likely hemodynamic MARIANA that is improving. He has evidence of mild obstruction being followed by urology. Avoid nephrotoxins. History of Present Illness - Reason for Consult Consult date: 07/30/17 Acute Kidney Injury, accelerated hypertension - Chief Complaint Hypertension. - History of Present Illness Mr. Jones is an 81 yo man with a history of a recently diagnosed UTI who presents secondary to ongoing UTI symptoms. He was found to have a recurrent UTI and imaging revealed mild hydroureter. He was also found to have accelerated hypertension and a consult was placed to [facility]. Past Med Surg Social Fam HX - Past Medical History Medical history: hypertension Psychiatric history: no psych history - Past Surgical History Surgical History: no surgical history - Social History Smoking Status: Never smoker Smokeless Tobacco Status: No Alcohol use: none Drug use: none Medications and Allergies Diphenhydramine HCl [Allergy] 25 mg PO DAILY 07/29/17 [History] Lisinopril [Zestril] 10 mg PO DAILY 07/29/17 [History] 3 Allergy/AdvReac Type Severity Reaction Status Date / Time No Known Allergies Allergy Verified 07/29/17 16:36 Review of Systems All Systems: reviewed and no additional remarkable complaints except as stated ( as per Hpi) Exam - Vital Signs Vital signs: Initial Vital Signs Temp Pulse Resp BP Pulse Ox 98 F 83 20 241/111 96 07/29/17 11:50 07/29/17 11:50 07/29/17 11:50 07/29/17 11:50 07/29/17 11:50 Vital Signs - Last 8 Hours Temp Pulse Resp BP Pulse Ox 07/30/17 16:24 222/100 07/30/17 16:00 97.9 F 79 18 220/110 97 07/30/17 10:52 97.8 F 73 18 158/88 98 Intake and Output 07/30/17 07/30/17 07/30/17 07:59 15:59 23:59 Intake Total 0 / 0 1700 / 1700 Output Total 375 / 375 475 / 475 Balance -375 / -375 1225 / 1225 Intake: IV Fluids 1700 / 1700 0.9 % Sodium Chloride 1,000 ML 1700 / 1700 @ 125 mls/hr IVC .Q8H RASHIDA Rx#: [id number] Oral 0 / 0 Output: Urine 375 / 375 475 / 475 - General Appearance General appearance: well-developed, well-nourished EENT: ATNC Neck: supple Respiratory: course breath sounds Cardiology: no edema, regular rate Integumentary: warm and dry Neurologic: alert and oriented x3 Musculoskeletal: no cyanosis Psychiatric: mood/affect appropriate Results - Lab Results 07/30/17 04:26 07/30/17 04:26 Most recent lab results Calcium 8.8 mg/dL (8.6-10.3) 07/30/17 04:26 Phosphorus 3.6 mg/dL (2.7-4.5) 07/30/17 04:26 Magnesium 1.9 mg/dL (1.6-2.6) 07/30/17 04:26 Consult Discharge Plan - Plan Referrals: Jeimy Farley DO [Family Provider] - NONE,PCP [Primary Care Provider] -
--- NOTE | 2017-07-30 17:45 | Urology Progress Note ---
Date of Encounter: 07/30/17 Time of Encounter: 17:44 - Assessment and Plan (1) Hydronephrosis Current Visit: Yes Status: Acute Assessment and plan: Urinary symptoms are somewhat improved. We will trial the patient on oxybutynin to see if helps with frequency. We will reassess in the morning. Still may require cystoscopy and ureteral stent placement. Urine culture was negative. This does raise the risk of other etiologies for the CT findings and urinary symptoms including urothelial malignancy.. Qualifiers: Hydronephrosis type: unspecified Qualified Code(s): N13.30 - Unspecified hydronephrosis Progress Note Subjective: feels better Narrative: Still with frequency. Mild dysuria Objective Initial Vital Signs Temp Pulse Resp BP Pulse Ox 98 F 83 20 241/111 96 07/29/17 11:50 07/29/17 11:50 07/29/17 11:50 07/29/17 11:50 07/29/17 11:50 - General physical appearance Present: no distress - Labs 07/30/17 04:26 07/30/17 04:26 Diabetes panel 07/30/17 Range/Units 04:26 Sodium 139 (136-145) mEq/L Potassium 3.9 (3.5-5.1) mEq/L Chloride 109 H (98-107) mEq/L Carbon Dioxide 24 (23-29) mEq/L BUN 37 H (8-23) mg/dL Creatinine 1.36 H (0.70-1.30) mg/dL Glucose 85 (70-105) mg/dL Calcium 8.8 (8.6-10.3) mg/dL AST 13 (13-39) Units/L ALT 7 (7-52) Units/L Alkaline Phosphatase 65 (34-104) Units/L Albumin 3.7 (3.5-5.7) g/dL Triglycerides 68 (< 150) mg/dL HDL Cholesterol 56 (40-59) mg/dL Calcium panel 07/30/17 Range/Units 04:26 Calcium 8.8 (8.6-10.3) mg/dL Phosphorus 3.6 (2.7-4.5) mg/dL Albumin 3.7 (3.5-5.7) g/dL Pituitary panel 07/30/17 Range/Units 04:26 Sodium 139 (136-145) mEq/L Potassium 3.9 (3.5-5.1) mEq/L Chloride 109 H (98-107) mEq/L Carbon Dioxide 24 (23-29) mEq/L BUN 37 H (8-23) mg/dL Creatinine 1.36 H (0.70-1.30) mg/dL Glucose 85 (70-105) mg/dL Calcium 8.8 (8.6-10.3) mg/dL Adrenal panel 07/30/17 Range/Units 04:26 Sodium 139 (136-145) mEq/L Potassium 3.9 (3.5-5.1) mEq/L Chloride 109 H (98-107) mEq/L Carbon Dioxide 24 (23-29) mEq/L BUN 37 H (8-23) mg/dL Creatinine 1.36 H (0.70-1.30) mg/dL Glucose 85 (70-105) mg/dL Calcium 8.8 (8.6-10.3) mg/dL Total Bilirubin 0.4 (0.3-1.0) mg/dL AST 13 (13-39) Units/L ALT 7 (7-52) Units/L Alkaline Phosphatase 65 (34-104) Units/L Albumin 3.7 (3.5-5.7) g/dL - VTE Documentation of Mechanical Device: Graduated compression elastic hosiery Consult Discharge Plan - Plan Referrals: Jeimy Farley DO [Family Provider] - NONE,PCP [Primary Care Provider] -
[2017-07-31 05:28] LABS: BUN/Creatinine Ratio 26 (6-26); Blood Urea Nitrogen 33 mg/dL (8-23); Calcium 8.6 mg/dL (8.6-10.3); Carbon Dioxide 22 mEq/L (23-29); Chloride 110 mEq/L (98-107); Glucose 101 mg/dL (70-105); Osmolality,Calculated 295 (280-300); Potassium 4.1 mEq/L (3.5-5.1); Sodium 139 mEq/L (136-145); eGFR For African Americans > 60 (> 60); eGFR For Non-African Americans 53 (> 60)
[2017-07-31] MEDS: *HR* Heparin 5,000 UNIT/ML VIAL SQ SCH ×2 (05:52→17:29)
--- NOTE | 2017-07-31 08:03 | Electrocardiograph Report ---
[place] [id number] Test Date: 2017-07-29 Pat Name: Hodan Jones Department: 102 Room: 2NE19 Gender: M [employer] Manager: Basil : 1935 Requested By: Joshua Harper Order Number: [id number] Reading MD: Isrrael Savage Measurements Intervals Shushan Rate: 72 P: 86 WI: 162 QRS: 69 QRSD: 93 T: 74 QT: 358 QTc: 382 Interpretive Statements SINUS RHYTHM POSSIBLE LEFT ATRIAL ENLARGEMENT TALL T-WAVES, SUGGESTS HYPERKALEMIA Electronically Signed On 07-31-2017 8:01:15 EDT by Isrrael Savage
--- NOTE | 2017-07-31 08:07 | Urology Progress Note ---
Date of Encounter: 07/31/17 Time of Encounter: 08:05 - Assessment and Plan (1) Hydronephrosis Current Visit: Yes Status: Acute Assessment and plan: I discussed with the patient of the urine culture was negative. This raises concern that the urinary symptoms and CT findings could be inbound customer service representative of a more concerning process such as urothelial malignancy. I will send his urine for cytology. Okay to discharge from urology standpoint. Will follow-up in the urology office with an outpatient cystoscopy. I recommend continuing oxybutynin 5 mg by mouth twice a day at discharge to help with frequency. Qualifiers: Hydronephrosis type: unspecified Qualified Code(s): N13.30 - Unspecified hydronephrosis Progress Note Narrative: pt reports oxybutynin has helped frequency "a lot". Objective Initial Vital Signs Temp Pulse Resp BP Pulse Ox 98 F 83 20 241/111 96 07/29/17 11:50 07/29/17 11:50 07/29/17 11:50 07/29/17 11:50 07/29/17 11:50 - General physical appearance Present: no distress - Psychiatric Present: memory intact - Labs 07/30/17 04:26 07/31/17 04:54 Diabetes panel 07/31/17 Range/Units 04:54 Sodium 139 (136-145) mEq/L Potassium 4.1 (3.5-5.1) mEq/L Chloride 110 H (98-107) mEq/L Carbon Dioxide 22 L (23-29) mEq/L BUN 33 H (8-23) mg/dL Creatinine 1.29 (0.70-1.30) mg/dL Glucose 101 (70-105) mg/dL Calcium 8.6 (8.6-10.3) mg/dL Thyroid panel 07/31/17 Range/Units 04:54 TSH 3.680 (0.340-5.600) mcIU/mL Calcium panel 07/31/17 Range/Units 04:54 Calcium 8.6 (8.6-10.3) mg/dL Pituitary panel 07/31/17 Range/Units 04:54 Sodium 139 (136-145) mEq/L Potassium 4.1 (3.5-5.1) mEq/L Chloride 110 H (98-107) mEq/L Carbon Dioxide 22 L (23-29) mEq/L BUN 33 H (8-23) mg/dL Creatinine 1.29 (0.70-1.30) mg/dL Glucose 101 (70-105) mg/dL Calcium 8.6 (8.6-10.3) mg/dL TSH 3.680 (0.340-5.600) mcIU/mL Adrenal panel 07/31/17 Range/Units 04:54 Sodium 139 (136-145) mEq/L Potassium 4.1 (3.5-5.1) mEq/L Chloride 110 H (98-107) mEq/L Carbon Dioxide 22 L (23-29) mEq/L BUN 33 H (8-23) mg/dL Creatinine 1.29 (0.70-1.30) mg/dL Glucose 101 (70-105) mg/dL Calcium 8.6 (8.6-10.3) mg/dL - VTE Documentation of Mechanical Device: Graduated compression elastic hosiery Consult Discharge Plan - Plan Referrals: Jeimy Farley DO [Family Provider] - NONE,PCP [Primary Care Provider] -
[2017-07-31] MEDS ORDERED: amLODIPine 5 MG TABLET PO SCH (09:00)
[2017-07-31] MEDS: amLODIPine 5 MG TABLET PO SCH (09:28)
[2017-07-31] MEDS: cefTRIAXone 1,000 MG in Water for inj. (sterile) 20 ML 10 ML IVP SCH (09:29)
--- NOTE | 2017-07-31 10:13 | Internal Med Progress Note ---
Date of Encounter: 07/31/17 Time of Encounter: 10:08 - Assessment and plan (1) Hypertensive emergency Current Visit: Yes Status: Acute Assessment and plan: Bp on arrival in 200s and found to have renal dysfunction. Hydralazine IV as needed Increase amlodipine up to 10 mg daily Resume lisinopril Renal doppler ordered Flomax can help also with blood pressure control (2) Hydronephrosis Current Visit: Yes Status: Acute Assessment and plan: Hydronephrosis and hydroureter down to the ureterovesical junction. Urology consulted and would recommend follow-up as an outpatient Cytology in urine was ordered Continue with antibiotics for suspected UTI. Qualifiers: Hydronephrosis type: unspecified Qualified Code(s): N13.30 - Unspecified hydronephrosis (3) Dysuria Current Visit: Yes Status: Acute Assessment and plan: Most likely secondary to UTI. Continue Ceftriaxone d2. Urine culture sent, no growth (4) Acute kidney injury Current Visit: Yes Status: Acute Assessment and plan: Secondary to uncontrolled hypertension and dehydration. UA with microscopic hematuria Improving -IV fluids (5) Microscopic hematuria Current Visit: Yes Status: Acute Assessment and plan: Follow-up with urology (6) BPH associated with nocturia Current Visit: Yes Status: Acute Assessment and plan: Prostate exam with an enlarged smooth firm prostate without nodularity and is symmetrical. Urinates about every 10-20 minutes over past 9-12 months. PSA 0.59 Follow-up with urology for possible cystoscopy as outpatient Continue tamsulosin - Time Spent With Patient Total time spent is greater than 50% in coordination of care (as documented) at patient's floor/unit and/or counseling patient: - Subjective Interval history: Feeling better, denies any chest pain, shortness of breath, no abdominal pain, no fevers diarrhea or dysuria - Constitutional Vitals: Temp Pulse Resp BP Pulse Ox 97.6 F 75 16 166/86 96 07/31/17 06:55 07/31/17 09:39 07/31/17 06:55 07/31/17 09:39 07/31/17 06:55 General appearance: Present: A&O X 3, pleasant, no acute distress, answers questions appropriately - Head Head exam: Present: atraumatic, normocephalic - Eye Eye exam: Present: PERRL, conjuntiva pink, sclera anicteric Pupils: Present: PERRL - Neck Neck exam general surgery: Present: supple, trachea midline. Absent: lymphadenopathy - Respiratory Respiratory exam: Present: CTAB. Absent: accessory muscle use, rales, rhonchi, wheezes - Cardiovascular Cardiovascular exam: Present: RRR, +S1, +S2. Absent: diastolic murmur, gallop, rubs, systolic murmur - GI/Abdominal GI/Abdominal exam: Present: normal bowel sounds, soft, no peritoneal signs. Absent: distended, tenderness - Extremities Exam Extremities exam: Present: warm, radial pulses palpable and symmetrical. Absent : calf tenderness, cyanotic, pedal edema - Neurological Exam Neurological exam: Present: CN II-XII intact, oriented X3, no focal deficits. Absent: pronater drift, facial droop, speech deficit - Skin Skin exam: Present: dry, intact Additional comments: Right first finger amputated Internal Medicine: Result - Labs CBC & Chem 7: 07/30/17 04:26 07/31/17 04:54 Labs: BMP 07/31/17 04:54 Sodium 139 Potassium 4.1 Chloride 110 H Carbon Dioxide 22 L BUN 33 H Creatinine 1.29 Glucose 101 Calcium 8.6 Cardiac Enzymes 07/30/17 Range/Units 10:01 Troponin I < 0.03 (< 0.04) ng/mL - ABG Interpretation ABG results: PT/INR, D-dimer PT 11.5 Seconds (9.4-12.1) 07/30/17 04:26 - VTE Documentation of Mechanical Device: Graduated compression elastic hosiery Consult Discharge Plan - Plan Referrals: Jeimy Farley DO [Family Provider] - NONE,PCP [Primary Care Provider] -
--- NOTE | 2017-07-31 14:18 | Nephrology Progress Note ---
Date of Encounter: 07/31/17 Time of Encounter: 14:17 - Assessment and Plan (1) Acute kidney injury Current Visit: Yes Status: Acute MARIANA improving. (2) Hypertension Current Visit: Yes Status: Acute Etiology for his accelerated hypertension is unclear. I recommend gradual titration of his antihypertensive medications. Will restart and increase lisinopril. renal artery dopplar negative. If discharged ok to follow-up in clinic in 6-8 weeks. . Qualifiers: Qualified Code(s): I10 - Essential (primary) hypertension (3) Hydroureter Current Visit: Yes Status: Acute Per urology. Subjective Principal diagnosis: hypertension Interval history: Patient seen. No new complaint. He feels better. His appetite is good. Objective - Vital Signs Vital signs: Vital Signs Temp Pulse Resp BP Pulse Ox 07/31/17 11:20 97.7 F 65 16 161/85 95 07/31/17 09:39 75 166/86 07/31/17 06:55 97.6 F 73 16 189/94 96 07/31/17 04:30 97.6 F 63 16 179/91 96 07/30/17 20:00 97.5 F L 76 14 151/85 97 07/30/17 16:24 222/100 07/30/17 16:00 97.9 F 79 18 220/110 97 Intake and Output 07/30/17 07/31/17 07/31/17 23:59 07:59 15:59 Intake Total 240 / 240 118 / 118 Output Total 150 / 150 75 / 75 300 / 300 Balance 90 / 90 -75 / -75 -182 / -182 Intake: Oral 240 / 240 118 / 118 Output: Urine 150 / 150 75 / 75 300 / 300 Other: Meal Lunch Percent of Meal Consumed 85% Weight 59.9 kg Patient Weight 07/31/17 23:59 Weight 59.9 kg - General Appearance General appearance: Present: well-developed, well-nourished, chronically ill EENT: Present: ATNC Cardiology: Present: regular rate Integumentary: Present: warm and dry Neurologic: Present: alert and oriented x3 Psychiatric: Present: mood/affect appropriate - Lab 07/30/17 04:26 07/31/17 04:54 Most recent lab results Calcium 8.6 mg/dL (8.6-10.3) 07/31/17 04:54 Phosphorus 3.6 mg/dL (2.7-4.5) 07/30/17 04:26 Magnesium 1.9 mg/dL (1.6-2.6) 07/30/17 04:26 Urine Sodium 145.0 mEq/L 07/31/17 05:00 - VTE Documentation of Mechanical Device: Graduated compression elastic hosiery Consult Discharge Plan - Plan Referrals: Jeimy Farley DO [Family Provider] - NONE,PCP [Primary Care Provider] -
[2017-07-31 16:02] LABS: Bilirubin,Urine Negative (Negative); Blood,Urine Moderate (Negative); Clarity,Urine Turbid (Clear); Color,Urine Yellow (Yellow); Glucose,Urine (UA) Normal (Normal); Ketones,Urine Negative (Negative); Leukocyte Esterase,Urine Large (Negative); Nitrite,Urine Negative (Negative); Protein,Urine 100 mg/dL (Neg-Trace); Specific Gravity,Urine 1.015 (1.010-1.025); Urobilinogen,Urine Normal (Normal)
[2017-07-31 16:04] LABS: Bacteria,Urine None Seen per hpf (None-Few); Hyaline Casts,Urine None Seen per lpf (None-Few); RBC,Urine 15-30 per hpf (0-3); Squamous Epithelial Cell,Urine Many per lpf (None-Few); WBC,Urine TNTC per hpf (0-3)
[2017-07-31 16:16] LABS: Yeast,Urine Moderate per hpf (None Seen)
[2017-07-31] MEDS ORDERED: amLODIPine 5 MG TABLET PO ONE (18:24)
[2017-08-01] MEDS: *HR* Heparin 5,000 UNIT/ML VIAL SQ SCH (05:15)
[2017-08-01] MEDS ORDERED: Lisinopril 20 MG TABLET PO SCH (08:13)
[2017-08-01] MEDS: cefTRIAXone 1,000 MG in Water for inj. (sterile) 20 ML 10 ML IVP SCH (08:25)
[2017-08-01] MEDS ORDERED: amLODIPine 5 MG TABLET PO SCH (09:00)
--- NOTE | 2017-08-01 10:16 | Discharge Summary ---
- NOTES TO OUTPATIENT PROVIDER Notes to Outpatient Provider: Follow-up with primary care physician within the next 7 days, continue amlodipine 10 mg daily, increase dose of lisinopril up to 40 mg daily. Continue taking Flomax. Follow-up with urology within the next week. Needs imaging in the future to assess AAA 3.5 cm Orders not resulted at time of discharge: Pending orders 07/31/17 04:54 Metanephrines, Plasma (Free) AM 0400 07/31/17 05:00 Metanephrine,Ur Random or 24hr AM 0400 07/31/17 09:53 Aldosterone, Blood AM 0400 Renin, Activity AM 04007/31/17 15:36 Urine Cytology Specimen Notice [UCHEM] Routine Date of Encounter: 08/01/17 Time of Encounter: 10:04 - Discharge Diagnosis (1) Hypertensive emergency Priority: Primary Status: Acute Assessment and Plan: Bp on arrival in 200s and found to have renal dysfunction. (2) Hydronephrosis Priority: Secondary Status: Acute Assessment and Plan: Hydronephrosis and hydroureter down to the ureterovesical junction. Qualifiers: Hydronephrosis type: unspecified Qualified Code(s): N13.30 - Unspecified hydronephrosis (3) Dysuria Priority: Secondary Status: Acute (4) Acute kidney injury Priority: Primary Status: Acute Assessment and Plan: Secondary to uncontrolled hypertension and dehydration. (5) Microscopic hematuria Priority: Secondary Status: Acute (6) BPH associated with nocturia Priority: Secondary Status: Acute Hospital course: Mr. Jones is a 81 year old male with a PMHx of HTN came to the ED c/o Dysuria x 1 month and increased frequency of urination, He was seen at [facility] for Dysuria on 06/21/17. He was given an antibiotic and discharged home. He also had a CT scan at that time which was negative, the patient was evaluated by the ER and his blood pressure was elevated more than 240 , his laboratory data revealed acute kidney injury with a creatinine of 1.6, the patient CAT scan of the abdomen showed a left hydroureter and hydronephrosis, the patient was admitted for further HTN emergency and UTI. Received Hydralazine IV as needed Started amlodipine up to 10 mg daily Increased dose of lisinopril, BP has improved. Dysuria has subsided. Culture was negative. 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 Flomax was recommended by Urology. Stable to be discharged. - Time Spent with Patient Total time spent providing and/or coordinating discharge services: Greater than 30 minutes (40 minutes) - Discharge Medications Prescriptions: amLODIPine [Norvasc] 10 mg PO DAILY #30 tablet Lisinopril [Zestril] 40 mg PO DAILY #30 tablet Oxybutynin [Ditropan] 5 mg PO BID #60 tablet Tamsulosin [Flomax] 0.4 mg PO DAILY #30 capsule Home Medications: Diphenhydramine HCl [Allergy] 25 mg PO DAILY 07/29/17 [History] Lisinopril [Zestril] 40 mg PO DAILY #30 tablet 08/01/17 [Rx] Oxybutynin [Ditropan] 5 mg PO BID #60 tablet 08/01/17 [Rx] Tamsulosin [Flomax] 0.4 mg PO DAILY #30 capsule 08/01/17 [Rx] amLODIPine [Norvasc] 10 mg PO DAILY #30 tablet 08/01/17 [Rx] Allergies/Adverse Reactions: 3 Allergy/AdvReac Type Severity Reaction Status Date / Time No Known Allergies Allergy Verified 07/29/17 16:36 Date of admission: 07/29/17 17:44 Primary care physician: PCP NONE Consults: 07/29/17 21:12 Consult to Physician [CONS] Routine Consulting Provider: Mg Parker Reason for Consult: MARIANA Time Notified: 21:13 Call Completed: No 07/30/17 11:09 Consult to Occupational Therapy [CONS] Routine Comment: Evaluate, develop and implement POC Reason for Consult: Evaluate and develop POC. generalized weakness not acute Does patient have active BEDREST order?: No Is patient medically & hemodynamically stable?: Yes Patient assessed for mobility or mobilized this visit?: No - Constitutional Vitals: Temp Pulse Resp BP Pulse Ox 97.7 F 67 18 177/90 98 08/01/17 06:45 08/01/17 06:45 08/01/17 06:45 08/01/17 06:45 08/01/17 06:45 General appearance: Present: A&O X 3, pleasant, no acute distress, answers questions appropriately Exam: Seborrheic keratoses lesions on scalp - Head Head exam: Present: atraumatic, normocephalic - Eye Eye exam: Present: PERRL, conjuntiva pink, sclera anicteric Pupils: Present: PERRL - Neck Neck exam general surgery: Present: supple, trachea midline. Absent: lymphadenopathy - Respiratory Respiratory exam: Present: CTAB. Absent: accessory muscle use, rales, rhonchi, wheezes - Cardiovascular Cardiovascular exam: Present: RRR, +S1, +S2. Absent: diastolic murmur, gallop, rubs, systolic murmur - GI/Abdominal GI/Abdominal exam: Present: normal bowel sounds, soft, no peritoneal signs. Absent: distended, tenderness - Extremities Exam Extremities exam: Present: warm, radial pulses palpable and symmetrical. Absent : calf tenderness, cyanotic, pedal edema - Neurological Exam Neurological exam: Present: CN II-XII intact, oriented X3, no focal deficits. Absent: pronater drift, facial droop, speech deficit - Skin Skin exam: Present: dry, intact - Patient Status Disposition: Home, Self-Care Condition: Good Overall status at discharge: patient is back to baseline - Discharge Instructions Follow Up With: Jeimy Farley DO [Family Provider] - NONE,PCP [Primary Care Provider] - - Diet and Activity Activity: increase activity as tolerated Diet: low fat, low cholesterol - VTE Documentation of Mechanical Device: Graduated compression elastic hosiery
[2017-08-01] MEDS ORDERED: aMILoride 5 MG TABLET PO SCH (11:30)
--- NOTE | 2017-08-01 13:10 | Nephrology Progress Note ---
Date of Encounter: 08/01/17 Time of Encounter: 13:08 - Assessment and Plan (1) Acute kidney injury Current Visit: Yes Status: Acute MARIANA improving. Baseline is unknown. (2) Hypertension Current Visit: Yes Status: Acute Etiology for his accelerated hypertension is unclear. I recommend gradual titration of his antihypertensive medications. restarted and increase lisinopril. Added amiloride. Check a basic metabolic panel 5 days post discharge to monitor potassium levels. renal artery dopplar negative. If discharged ok to follow-up in clinic in 6-8 weeks if needed. Qualifiers: Qualified Code(s): I10 - Essential (primary) hypertension (3) Hydroureter Current Visit: Yes Status: Acute Per urology. Follow-up as an outpatient. Subjective Principal diagnosis: hypertension Interval history: Patient seen. No new complaint. He feels better. His appetite is good. Objective - Vital Signs Vital signs: Vital Signs Temp Pulse Resp BP Pulse Ox 08/01/17 12:17 86 164/89 08/01/17 06:45 97.7 F 67 18 177/90 98 08/01/17 04:00 98.1 F 72 18 162/82 96 07/31/17 19:03 98.9 F 67 16 184/90 98 07/31/17 17:28 153/79 Intake and Output 07/31/17 08/01/17 08/01/17 23:59 07:59 15:59 Intake Total 240 / 240 120 / 120 360 / 360 Output Total 100 / 100 500 / 500 200 / 200 Balance 140 / 140 -380 / -380 160 / 160 Intake: Oral 240 / 240 120 / 120 360 / 360 Output: Urine 100 / 100 500 / 500 200 / 200 Other: Meal Dinner Breakfast Percent of Meal Consumed 100% 100% Weight 60 kg Patient Weight 08/01/17 23:59 Weight 60 kg - General Appearance General appearance: Present: well-developed, well-nourished EENT: Present: ATNC Cardiology: Present: regular rate Integumentary: Present: warm and dry Neurologic: Present: alert and oriented x3 Psychiatric: Present: mood/affect appropriate - Lab 07/30/17 04:26 07/31/17 04:54 Most recent lab results Calcium 8.6 mg/dL (8.6-10.3) 07/31/17 04:54 Phosphorus 3.6 mg/dL (2.7-4.5) 07/30/17 04:26 Magnesium 1.9 mg/dL (1.6-2.6) 07/30/17 04:26 Urine Sodium 145.0 mEq/L 07/31/17 05:00 - VTE Documentation of Mechanical Device: Graduated compression elastic hosiery Consult Discharge Plan - Plan Instructions: Oxybutynin (By mouth), Lisinopril (By mouth), Amlodipine (By mouth), Tamsulosin (By mouth), Amiloride (By mouth), Chronic Hypertension (DC) Referrals: Geovany Maguire MD [Partnered Physician] - (call for an appointment within 6-8 weeks) Jeimy Farley DO [Family Provider] - (call for follow up appointment within 1 week of discharge ) NONE,PCP [Primary Care Provider] - Matt Arias MD [Partnered Physician] - (call for appointment within 1 week of discharge. ) Prescriptions: Amiloride HCl 5 mg PO DAILY #30 tablet amLODIPine [Norvasc] 10 mg PO DAILY #30 tablet Lisinopril [Zestril] 40 mg PO DAILY #30 tablet Oxybutynin [Ditropan] 5 mg PO BID #60 tablet Tamsulosin [Flomax] 0.4 mg PO DAILY #30 capsule
[2017-08-01 13:34] VITALS: BP 147/79
[2017-08-03 10:23] LABS: Urine Collection Duration RANDOM hr; Urine Collection Volume RANDOM mL
[2017-08-03 11:54] LABS: Metanephrine, Plasma 0.28 nmol/L (0.00-0.49)
== END 2017-08-01 13:38 | disposition home or self-care (01) ==
LOC: 2NENU 11:36 → EMEROO 11:36 → 2NENU 18:54
PROVIDERS: ADMIT Hospitalist; ATTEND Hospitalist